=== PATIENT | female | born 1945 | race Caucasian/White ===

== ENCOUNTER 2025-04-11 21:24 | Emergency (ER) | payer MEDICARE, BC ==
[~2025-04-11] VITALS: Ht 160 cm; Wt 46.0 kg
--- NOTE | 2025-04-11 22:09 | Physician Documentation ---
History of Present Illness ~ Chief Complaint: Hip pain Stated Complaint: L HIP PAIN Time Seen by MD: 21:44 Source: patient Mode of Arrival: EMS Exam Limitations: no limitations HPI 79-year-old female woke up with sudden onset sharp left hip pain. Patient states approximately 3 days ago she did fall while getting out of bed at night on her right hip which she states she was able to walk right after and had minimal pain for approximately 24 hours. Patient states that she has had no injury to the left hip woke up and then stood up experiencing this pain that she describes as being kicked by a horse. Patient was unable to stand up and had her neighbor help her up to come to the ER Medication Reconciliation Allergies: Coded Allergies: No Known Allergies (Unverified , 04/11/25) Scheduled Celecoxib (Celecoxib), 1 CAP PO DAILY Diclofenac Sodium (Diclofenac Sodium), 1 APPLIC TOP Q6H Lidocaine (Lidoderm), 1 PATCH TOP DAILY Past Medical History Past Medical History: No Pertinent History Past Surgical History: noncontributory Lives with: Family Lives In: Home Occupation: retired Review of Systems All Other Systems at this time: Reviewed and Negative Musculoskeletal: Reports: see HPI Physical Exam Vital Signs: RN Vital Signs have been reviewed: Yes, Heart Rate: 80, Respirat ory Rate: 16, BP: 157/58, Pulse Oximetry: 98, Weight: 46.000 Physical Exam General: Alert, no apparent distress. HEENT: PERRL, EOMI, no injection, moist mucous membranes. Neck: Full range of motion. Respiratory: Lungs clear, no respiratory distress. Chest: No accessory muscle use. Cardiovascular: Regular rate and rhythm, no murmurs. Extremities: Normal range of motion, no deformity. Neurologic: Oriented x4. Psychiatric: Normal mood and affect. Skin: Normal color, warm and dry. No edema, no ecchymosis. Progress Results/Orders Results/Orders Orders - KAITY DEXTER WELLNESS DIRECTOR Hip Unilateral 2 Views (04/11/25 21:49) Gait Test (04/11/25 ) Completed Orders - KAITY DEXTER WELLNESS DIRECTOR Hip Unilateral 2 Views (04/11/25 21:49) Hydrocodone/Apap 10/325 ([place] 10/325mg (04/11/25 22:10) Medications Received in ER Medications (Trade) Dose Ordered Sig/Candice Route PRN Reason Start Time Stop Time Status Last Admin Dose Admin ([place] 10/325mg tab) 1 tab ONCE ONCE PO 04/11/25 22:10 04/11/25 22:11 DC 04/11/25 22:36 1 TAB Vital Signs 04/11/25 04/11/25 04/11/25 21:27 22:39 23:00 Pulse 80 84 Resp 16 16 16 B/P (MAP) 157/58 138/59 (85) Pulse Ox 98 98 EKG/XRAY/CT/US/VASC/MRI Bone/Soft Tissue X-Ray (Ext.) : Additional Comment CLINICAL INDICATION: Pain TECHNIQUE: 3 views DI HIP UNILATERAL 2 VIEWS Comparison: None FINDINGS: No acute fracture or dislocation. Diffuse osteopenia. Dymvr-kntrpfl-bofh-left hip osteoarthrosis. Degenerative change of the lumbosacral spine. Unremarkable pelvic contents. IMPRESSION: 1. No acute osseous finding of the pelvis or left hip. Medical Decision Making Findings Although patient denies any injury or falls to the left hip an x-ray has been ordered to evaluate for any osseous abnormality pain medication prescribed with the pain being constant but with waves of worsening pain pain medication has been prescribed. X-ray shows no fracture but does show osteopenia/porosis as well as degenerative changes like arthritis. We will prescribe a couple of days of tramadol and gait test prior to discharge. Patient will follow up with primary care for further treatment and evaluation of arthrosis and left hip pain. Patient does have a walker on the used to be her late . She does live alone. She was able to ambulate had a moderate time needing help getting out of bed but was able to ambulate smoothly with a walker. Departure Time of Disposition: 23:41 Disposition: 01 HOME / SELF CARE / HOMELESS Impression: Primary Impression: Arthritis Condition: Stable Discharge Instructions: Arthritis, Nonspecific Additional Instructions: X-ray shows no fractures but does show bone mass such as osteoporosis as well as degenerative changes of that hip which is arthritis. Take pain medication as prescribed get up slowly pain medications can increase the risk of falls. Follow up with primary care for referrals and further treatment and evaluation of hip pain as orthopedics can help care for degenerative changes. Feel free to monitor and for any new or worsening concerns return to the ER Referrals: NO PRIMARY CARE PROVIDER (PCP) Prescriptions Tramadol Hcl (Tramadol Hcl) 50 Mg Tablet 1 TAB PO Q12H PRN PRN for pain for 5 Days, #10 TAB Prov: KAITY DEXTER NP 04/11/25 Diclofenac Sodium (Diclofenac Sodium) 1 % Gel..gram. 1 APPLIC TOP Q6H for 21 Days, #100 GM 0 Refills Prov: KAITY DEXTER NP 04/11/25 Lidocaine (Lidoderm) 5 % Adh..patch 1 PATCH TOP DAILY for 30 Days, #30 PATCH 0 Refills may wear up to 12 hours Prov: KAITY DEXTER NP 04/11/25 Celecoxib (Celecoxib) 400 Mg Capsule 1 CAP PO DAILY for 7 Days, #7 CAP 0 Refills Prov: KAITY DEXTER NP 04/11/25 Education Educated: Patient Educated regarding: diagnosis, treatment, need for follow up Signature Scribe Signature: No scribe Attestation: The note accurately reflects work and decisions made by me.Kaity MARINELLI 04/11/25 22:09 KAITY DEXTER NP Apr 11, 2025 22:09
[2025-04-11] MEDS: HYDROcodone/acetaminophen 10/325mg tab PO ONE (22:36)
--- NOTE | 2025-04-11 22:45 | RADIOLOGY REPORT ---
CLINICAL INDICATION: Pain TECHNIQUE: 3 views DI HIP UNILATERAL 2 VIEWS Comparison: None FINDINGS: No acute fracture or dislocation. Diffuse osteopenia. Jzggq-tntbeas-zksu-left hip osteoarthrosis. Degenerative change of the lumbosacral spine. Unremarkable pelvic contents. IMPRESSION: 1. No acute osseous finding of the pelvis or left hip.
[2025-04-11] MEDS ORDERED: DICL100G59 TOP (22:52)
[2025-04-11] MEDS ORDERED: LIDO-52 TOP (22:52)
[2025-04-11] MEDS ORDERED: CELE400C16 PO (22:52)
[2025-04-11] MEDS ORDERED: TRAM50TA2 PO (23:41)
[2025-04-11] MEDS: ketorolac trometh 30MG/ML vial 30 MG/ML VIAL IM ONE (23:53)
[2025-04-11 23:56] VITALS: BP 132/68; PULSE 88; RESP 16; O2SAT 98
== END 2025-04-12 00:21 | disposition home or self-care (01) ==
LOC: ER 21:25
DX: M16.12 Unilateral primary osteoarthritis, left hip (principal); Z79.899 Other long term (current) drug therapy
CPT/HCPCS: 73502; 96372; 99283; J1885

== ENCOUNTER 2025-04-15 11:02 | Inpatient (IN) | payer MEDICARE, BC ==
[~2025-04-15] VITALS: Ht 167.6 cm; Wt 54.5 kg
[~2025-04-15 11:02] MED LIST: CELE400C16 PO; DICL100G59 TOP; LIDO-52 TOP; TRAM50TA2 PO
--- NOTE | 2025-04-15 11:08 | Physician Documentation ---
History of Present Illness ~ Chief Complaint: Leg Pain Stated Complaint: HIP & LEG PAIN Time Seen by MD: 11:17 [facility] 79-year-old female who presents persisting pain to the right hip and low back. She was seen here previously after a fall, had x-rays that were reportedly nor mal. However, the pain persists, and is made much worse by attempts to ambulate. Tetanus witin 5 years: No Medication Reconciliation Allergies: Coded Allergies: No Known Allergies (Unverified , 04/15/25) Scheduled Diclofenac Sodium (Diclofenac Sodium), 1 APPLIC TOP Q6H Rivastigmine (Rivastigmine), 1 PATCH TOP DAILY, (Reported) Scheduled PRN Tramadol HCl (Tramadol HCl), 1 TAB PO Q12H PRN PRN for pain, (Reported) Miscellaneous Medications Prednisone (Prednisone), (Reported) Discontinued Medications Celecoxib (Celecoxib), 1 CAP PO DAILY Discontinued Reason: Other Lidocaine (Lidoderm), 1 PATCH TOP DAILY Discontinued Reason: Other Tramadol Hcl (Tramadol Hcl), 1 TAB PO Q12H PRN PRN for pain Discontinued Reason: Other Past Medical History Past Medical History: No Pertinent History Past Surgical History: noncontributory Lives with: Family Lives In: Home Occupation: retired Review of Systems ROS As stated above in the HPI, otherwise all systems are reviewed and negative. Physical Exam Physical Exam General: Alert, acutely distressed and attempts to not sit or lie on right side. Neck: Full range of motion. Respiratory: Lungs clear, no respiratory distress. Chest: No accessory muscle use. Cardiovascular: Regular rate and rhythm, no murmurs. Gastrointestinal: Soft, nontender, nondistended. Bowels sounds present. Extremities: TTP right hip ant/post and low back. Neurologic: Oriented x4. Psychiatric: Normal mood and affect. Skin: Normal color, warm and dry. No edema, no ecchymosis. Progress Results/Orders Results/Orders Orders - PHILOMENA HARDEN NP Ct Lumbar Spine (04/15/25 12:04) Ct Lower Extremity (04/15/25 12:05) * Iv Access / Saline Lock * (04/15/25 12:39) Page Hospitalist (04/15/25 ) Completed Orders - PHILOMENA HARDEN NP Ct Lumbar Spine (04/15/25 12:04) Ct Lower Extremity (04/15/25 12:05) Hydrocodone/Apap 5/325mg Tab ([place] 5/32 (04/15/25 11:30) Hydromorphone 0.5 Mg/0.5 Ml/Pf (Dilaudid (04/15/25 12:40) Cbc/Diff (04/15/25 12:56) CMP (04/15/25 12:56) Medications Received in ER Medications (Trade) Dose Ordered Sig/Candice Route PRN Reason Start Time Stop Time Status Last Admin Dose Admin ([place] 5/325mg tablet) 1 tab ONCE ONCE PO 04/15/25 11:30 04/15/25 11:31 DC 04/15/25 12:18 1 TAB (Dilaudid inj.) 0.5 mg ONCE ONCE IV 04/15/25 12:40 04/15/25 12:43 DC 04/15/25 13:10 0.5 MG Vital Signs 04/15/25 04/15/25 04/15/25 04/15/25 11:08 12:18 12:19 13:10 Temp 97.6 Pulse 80 78 Resp 18 17 16 16 B/P (MAP) 155/46 127/80 (96) Pulse Ox 100 99 O2 Flow Rate 0 Laboratory Tests Test 04/15/25 13:08 White Blood Count 13.3 H Red Blood Count 3.49 L Hemoglobin 12.0 Hematocrit 35.5 Mean Corpuscular Volume 101.9 H Mean Corpuscular Hemoglobin 34.5 H Mean Corpuscular Hemoglobin Concent 33.9 Red Cell Distribution Width 13.3 Platelet Count 371 Mean Platelet Volume 7.7 Neutrophils (%) (Auto) 93.3 H Lymphocytes (%) (Auto) 2.6 L Monocytes (%) (Auto) 3.8 Eosinophils (%) (Auto) 0 Basophils (%) (Auto) 0.3 Neutrophils # (Auto) 12.5 H Lymphocytes # (Auto) 0.3 L Monocytes # (Auto) 0.5 Eosinophils # (Auto) 0.0 Basophils # (Auto) 0.0 CBC Comment Sodium Level 139 Potassium Level 3.9 Chloride Level 100 Carbon Dioxide Level 27.3 Anion Gap 12 Blood Urea Nitrogen 23 H Creatinine 0.64 Estimated GFR/1.73 m2 90 BUN/Creatinine Ratio 35.9 H Glucose Level 109 H Calcium Level 9.2 Total Bilirubin 0.7 Aspartate Amino Transf (AST/SGOT) 71 H Alanine Aminotransferase (ALT/SGPT) 49 Alkaline Phosphatase 93 Total Protein 7.5 Albumin 3.4 Globulin 4.1 Albumin/Globulin Ratio 0.8 L Chemistry Comments EKG/XRAY/CT/US/VASC/MRI Bone/Soft Tissue X-Ray (Spine) : Additional Comment [facility] [address], [place], [place] - [address] CAT SCAN Patient: WALTER LI Medical Record: [id number] [facility] : 1945, Age: 79 Sex: Female Location: ER Patient Status: [facility] ER Service Date/Time: 04/15/25/ 1205 Ordering Physician: PHILOMENA HARDEN CORN HUSKER MACHINE OPERATOR Exam: CT LOWER EXTREMITY INDICATION: pain RT HIP PAIN COMPARISON: None TECHNIQUE: CT of the right hip was performed without contrast. Volume transverse images were obtained and reconstructed in multiple planes using bone and soft tissue algorithms. Radiation Dose Information: CT Dose: CTDI volume is 5.83 mGy. Dose-length product is 142.73 mGy*cm FINDINGS: The alignment is normal. View degenerative changes at the hip with complete joint space loss, subchondral sclerosis, subchondral cysts, and osteophytes. There is no fracture, dislocation or aggressive osseous lesion. There is no joint effusion. The soft tissues are normal. IMPRESSION: No acute osseus abnormality. Severe degenerative changes at the right hip. All CT scans at this medical facility are performed using dose modulation techniques as appropriate to a performed exam including the following: Automated exposure control was utilized; Adjustment of the MA And/or KV according to patient size; And use of iterative reconstruction technique. Electronically Signed by:LAITH IVERSON MD Date & Time: 04/15/25 1223 Dictated by: LAITH IVERSON MD Dictation date and time: 04/15/25 1223 Primary Care Provider: NO PRIMARY CARE PROVIDER cc: PHILOMENA HARDEN CORN HUSKER MACHINE OPERATOR ~ Bone/Soft Tissue X-Ray (Ext.) : Additional Comment [address] [address] CAT SCAN Patient: WALTER LI Medical Record: [id number] [facility] : 1945, Age: 79 Sex: Female Location: ER Patient Status: [facility] ER Service Date/Time: 04/15/25/ 1203 Ordering Physician: PHILOMENA HARDEN NP Exam: CT LUMBAR SPINE EXAM: CT CT LUMBAR SPINE HISTORY: pain COMPARISON: None CTDIvol 6.52 mGy, DLP 195.44 mGy*cm. TECHNIQUE: Multiple axial CT images of the spine were obtained using bone alg orithm. Axial and coronal reformatting was done. Bone and soft tissue windows were reviewed. FINDINGS: Bones are diffusely demineralized Comminuted minimally displaced fractures of both the right and left sacral ala that appear acute. Additional minimally displaced fracture of the left L5 transverse process. Moderate convex left lumbar scoliosis with resultant severe degenerative disc disease at L2-L3 on the right. IMPRESSION: Comminuted minimally displaced fractures of both sacral ala. Minimally displaced fracture of the left L5 transverse process. Electronically Signed by:LAITH IVERSON MD Date & Time: 04/15/25 1217 Dictated by: LAITH IVERSON MD Dictation date and time: 04/15/25 1204 Primary Care Provider: NO PRIMARY CARE PROVIDER cc: PHILOMENA HARDEN CORN HUSKER MACHINE OPERATOR ~ Medical Decision Making General Diff Dx:Considerations: Include: Abrasion, Contusion, Fracture, Hematoma, Laceration, Malunion, Neurovascular injury, Open fracture, Sprain, Ulcer Additional Comment 79 year old female presented due to persisting right hip pain, made worse with ambulation. She further noted that she was having difficulty getting in and out of her bed due to the pain and difficulty weight-bearing on the right. She was found to have bilateral sacral ala fractures as well as lumbar fracture at level L5. She will require admission for physical therapy and pain management, and may need a rehabilitation stay as well. Hospitalist paged to evaluate her for admission. Departure Time of Disposition: 15:11 Disposition: 09 ADMITTED INPATIENT Admitted to Inpatient Unit: yes, to hospitalist Impression: Primary Impression: sacral ala fracture Referrals: NO PRIMARY CARE PROVIDER (PCP) Signature Scribe Signature: x Attestation: The note accurately reflects work and decisions made by me.Philomena Randhawa NP 04/15/25 13:00 PHILOMENA HARDEN NP Apr 15, 2025 11:08
[2025-04-15] MEDS: HYDROcodone/acetaminophen 5mg/325mg tablet PO ONE (12:18)
--- NOTE | 2025-04-15 12:20 | RADIOLOGY REPORT ---
EXAM: CT CT LUMBAR SPINE HISTORY: pain COMPARISON: None CTDIvol 6.52 mGy, DLP 195.44 mGy*cm. TECHNIQUE: Multiple axial CT images of the spine were obtained using bone algorithm. Axial and coronal reformatting was done. Bone and soft tissue windows were reviewed. FINDINGS: Bones are diffusely demineralized Comminuted minimally displaced fractures of both the right and left sacral ala that appear acute. Additional minimally displaced fracture of the left L5 transverse process. Moderate convex left lumbar scoliosis with resultant severe degenerative disc disease at L2-L3 on the right. IMPRESSION: Comminuted minimally displaced fractures of both sacral ala. Minimally displaced fracture of the left L5 transverse process.
--- NOTE | 2025-04-15 12:26 | RADIOLOGY REPORT ---
INDICATION: pain RT HIP PAIN COMPARISON: None TECHNIQUE: CT of the right hip was performed without contrast. Volume transverse images were obtained and reconstructed in multiple planes using bone and soft tissue algorithms. Radiation Dose Information: CT Dose: CTDI volume is 5.83 mGy. Dose-length product is 142.73 mGy*cm FINDINGS: The alignment is normal. View degenerative changes at the hip with complete joint space loss, subchondral sclerosis, subchondral cysts, and osteophytes. There is no fracture, dislocation or aggressive osseous lesion. There is no joint effusion. The soft tissues are normal. IMPRESSION: No acute osseus abnormality. Severe degenerative changes at the right hip. All CT scans at this medical facility are performed using dose modulation techniques as appropriate to a performed exam including the following: Automated exposure control was utilized; Adjustment of the MA And/or KV according to patient size; And use of iterative reconstruction technique.
--- NOTE | 2025-04-15 13:09 | HISTORY AND PHYSICAL ---
History & Physical Providers to Complaint, low-back pain, right thigh pain ~ History of Present Illness Reason for Admit\Complaint: As above History of Present Illness This is a 79-year-old female, relatively in good health except history of hypertension, history of chronic pain syndrome on home NSAIDs, presented today to emergency department chief complaint right thigh pain, mechanical fall, ground level, associated with back pain, and Gait disorder 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 who presents persisting pain to the right hip and low back. She was seen here previously after a fall, had x-rays that were reportedly normal. However, the pain persists, and is made much worse by attempts to ambulate. In emergency department patient was evaluated by medical provider, was diagnosed with L5 transverse process fracture and sacral bilateral alar fracture, and decision was made to admit patient for further evaluation and treatment, no additional complaint or concern. CT of the head neck thoracic spine a right femur pending. Allergies: Coded Allergies: No Known Allergies (Unverified , 04/15/25) Active prescriptions I reviewed reconciled Home Medications Home Medications Active Tramadol Hcl (Tramadol HCl) 50 Mg Tablet 1 Tab PO Q12H PRN PRN 5 Days Diclofenac Sodium 1 % Gel..gram. 1 Applic TOP Q6H 21 Days Lidoderm (Lidocaine) 5 % Adh..patch 1 Patch TOP DAILY 30 Days may wear up to 12 hours Celecoxib 400 Mg Capsule 1 Cap PO DAILY 7 Days Past Medical History Past Medical History As in HPI Past Surgical History Surgical History Comment As in HPI Past Social History Social History Comment Deny illicit drug abuse tobacco alcohol use live with the family, good social support Health Maintenance Health Maintenance Noncontributory ROS ROS I review of systems Exam Vitals: Vital Signs Date Time Temp Pulse Resp B/P (MAP) Pulse Ox O2 Delivery O2 Flow Rate FiO2 04/15/25 12:19 78 16 127/80 (96) 99 0 04/15/25 11:08 97.6 Vital signs, stable ,afebrile. Pulse Oximetry reflects adequate oxygenation. BMI is 19, weight 54 kg General: well developed, well nourished. Awake , alert, and oriented x4, resting comfortably in the bed, in no acute distress . Skin: Warm, dry, no pallor, no rash or petechiae. HEENT: Atraumatic, normocephalic, EOMI, anicteric sclera B; pink conjunctiva; PERRLA, normal oropharynx, moist oral and nasal mucosa. Tympanic membrane , nose , throat clear. Neck: Trachea midline. Supple, full range of motion, no JVD, bruit , hepatojugular reflex , lymphadenopathy or masses, or other lesions Cardiac: Regular rhythm, regular rate no murmurs, rubs, or gallops. Normal S1 and S2, no S3 noticed. PMI is normal. Respiratory: Equal breath sounds bilaterally, no tachypnea; lungs clear to auscultation bilaterally, no wheezing ,rub or rales, or crackles. Chest wall is symmetric and without deformity. No signs of trauma. Chest wall is nontender. No signs of respiratory distress. Resonance is normal upon percussion bilaterally. Gastrointestinal: Abdomen symmetric, non-distended, soft, non-tender, normal bowel sounds x4 quadrant, normoactive, no hepatosplenomegaly , no masses , no bruit, no flank pain bilaterally. No voluntary guarding, rebound, or rigidity. No tenderness to percussion. No pulsatile masses. Equal femoral pulses. No Horvath's sign or McBurney point tenderness. Back; no CVA tenderness bilaterally, no deformities. Neck and back are without deformity as well. No tenderness noted on palpation of the spinous processes. Spinous processes are midline. Cervical, thoracic, and lumbar paraspinal muscles are not tender and are without spasm. Locally, lower horseback excavator to pa lpation over L5, associated paraspinal pain, : Not indicated Musculoskeletal: Extremities, normal range of motion, non-tender, muscle strength 5/5 x 4. Negative Homans signs bilaterally on lower extremity. Distal pulses full symmetrical, no clubbing, cyanosis , edema. Locally, a right thigh tender to palpation midline 1/3 neurovascular grossly intact, Neurological: Speech is clear, alert, and oriented x 4. No motor or sensory deficit, deep tendon reflexes normal, cerebellar intact. Cranial nerves II-XII intact. Psych: Alert and or appropriate, normal affect. Vascular: Good distal pulses, which are equal x4; capillary refill less than 2 seconds. Lymphatic, no lymphadenopathy. 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 IV analgesics PT evaluation and treatment Additional lab work pending Nutrition consult CT of the head and neck and thoracic spine pending Chest x-ray pending I reconciled home medications DVT gastropathy prophylaxis addressed Sepsis Screening Reassessment Date: Apr 15, 2025 Date of Service: Apr 15, 2025 Billing Provider: ABRAN GALLAGHER MD Common Visit Codes: 40306-AFRBMNE INP/OBS CARE (HIGH) Secondary Visit Codes: 16781-[id number] CARE PLAN 30 MINUTES ABRAN GALLAGHER MD Apr 15, 2025 13:09
[2025-04-15] MEDS: HYDROmorphone inj. 0.5 MG/0.5 ML DISP.SYRIN IV ONE (13:10)
[2025-04-15 13:27] LABS: MEAN PLATELET VOLUME 7.7 FL (7.4-10.4); RED CELL DISTRIBUTION WIDTH 13.3 % (11.5-14.5)
[2025-04-15] MEDS ORDERED: RIVA1PAT12 TOP (13:28)
[2025-04-15] MEDS ORDERED: TRAM50TA2 PO (13:30)
[2025-04-15] MEDS ORDERED: PRED10TA (13:32)
[2025-04-15 13:40] LABS: CREATININE 0.64 MG/DL (0.40-0.90); TOTAL CARBON DIOXIDE 27.3 MMOL/L (24-32); eCRCL 62 ML/MIN; eGFR 90 ML/MIN
[2025-04-15] MEDS ORDERED: magnesium Cl slow-release 64mg tablet PO PRN (15:00)
[2025-04-15] MEDS ORDERED: bisacodyl 10mg suppository rectal RC PRN (15:00)
[2025-04-15] MEDS ORDERED: ondansetron/PF 4mg/2ml inj IV PRN (15:00)
[2025-04-15] MEDS ORDERED: HYDROcodone/acetaminophen 5mg/325mg tablet PO PRN (15:00)
[2025-04-15] MEDS ORDERED: magnesium sulf-water 2g/50mL 50 ML IV PRN (15:00)
[2025-04-15] MEDS ORDERED: potassium Cl 20 mEq SR tablet PO PRN ×2 (15:00)
[2025-04-15] MEDS ORDERED: acetaminophen 650mg rectal suppository RC PRN (15:00)
[2025-04-15] MEDS ORDERED: ondansetron 4mg rapidly disintigrating tab PO PRN (15:00)
[2025-04-15] MEDS ORDERED: magnesium sulf-water 4G/100mL 100 ML IV PRN (15:00)
[2025-04-15] MEDS ORDERED: magnesium hydroxide 30ml (MOM) UD suspension PO PRN (15:00)
[2025-04-15] MEDS ORDERED: potassium Cl 40MEQ/1/2NS 520ml 520 ML IV PRN (15:00)
[2025-04-15] MEDS ORDERED: mag hydrox/Alum hydrox/simeth 30ml oral suspension PO PRN (15:00)
[2025-04-15 15:45] VITALS: BP 158/63; PULSE 70; RESP 16; TEMP 96.9; O2SAT 98
--- NOTE | 2025-04-15 15:50 | RADIOLOGY REPORT ---
EXAM: CT CT HEAD HISTORY: Altered level of consciousness after the fall COMPARISON: None TECHNIQUE: Noncontrast axial CT images of the head were performed. Sagittal and coronal reformatted images were obtained. This CT exam was performed using 1 or more of the following dose reduction techniques: Automated exposure control, adjustment of the mA and/or kv according to patient size, or the use of iterative reconstruction techniques. Radiation Dose: CTDI volume is 47.08 mGy. Dose-length product is 791.35 mGy*cm FINDINGS: No intracranial hemorrhage, mass, midline shift, hydrocephalus, or evidence of acute large vessel infarct. There is mild global brain atrophy. There is chunky calcification about the caudal aspect of the left maxillary sinus. The other paranasal sinuses are clear. There are postoperative changes of bilateral cataract extraction surgery. The bilateral mastoid air cells and middle ear spaces are clear. No cranial fracture or scalp edema. IMPRESSION: 1. No acute intracranial process. 2. Outlook calcification along the inferior margin of the left maxillary sinus is nonspecific, and may be due to old trauma, chronic sinusitis, or iatrogenic etiology.
--- NOTE | 2025-04-15 15:51 | RADIOLOGY REPORT ---
EXAM: CT CT CERVICAL SPINE HISTORY: Altered level of consciousness after the fall COMPARISON: None CTDIvol 10.39 mGy, DLP 242.44 mGy*cm. TECHNIQUE: Multiple axial CT images of the spine were obtained using bone algorithm. Axial and coronal reformatting was done. Bone and soft tissue windows were reviewed. FINDINGS: No evidence of definite acute fracture, spinal dislocation, or significant appearing acute subluxation is seen. Most of normal cervical lordosis secondary to moderate to severe degenerative disc disease throughout the mid and lower cervical spine. IMPRESSION: No definite CT evidence of acute fracture or dislocation of the bony cervical spine.
--- NOTE | 2025-04-15 15:54 | RADIOLOGY REPORT ---
EXAM: CT CT THORACIC SPINE INDICATION: Altered level of consciousness after the fall COMPARISON: CT CT CERVICAL SPINE on DOS: 04/15/25, DI CHEST,SINGLE VIEW on DOS: 04/15/25, CT CT LUMBAR SPINE on DOS: 04/15/25 TECHNIQUE: Multiple axial CT images of the thoracic spine were obtained using bone algorithm. Axial and coronal reformatting was done. Bone and soft tissue windows were reviewed. Radiation Dose Information: CT Dose: CTDI volume is 6.97 mGy. Dose-length product is 252.56 mGy*cm FINDINGS: No CT evidence of acute fracture or traumatic mal-alignment. The visualized paraspinal soft tissues are grossly unremarkable. Mild convex right curvature of the thoracic spine which could be positional. There is mild multilevel degenerative change of the spine with disc space narrowing and marginal osteophyte formation. IMPRESSION: No CT evidence of acute fracture or traumatic malalignment of the bony thoracic spine. Radiation optimization: All CT scans at this facility use at least one of these dose optimization techniques: automated exposure control mA and/or kV adjustment per patient size (includes targeted exams where dose is matched to clinical indication) or iterative reconstruction.
--- NOTE | 2025-04-15 15:56 | RADIOLOGY REPORT ---
INDICATION: Right thigh pain, mechanical fall COMPARISON: CT CT LOWER EXTREMITY on DOS: 04/15/25, CT CT LUMBAR SPINE on DOS: 04/15/25, DI HIP UNILATERAL 2 VIEWS on DOS: 04/11/25 TECHNIQUE: CT of the right lower extremity was performed without contrast. Volume transverse images were obtained and reconstructed in multiple planes using bone and soft tissue algorithms. Radiation Dose Information: CT Dose: CTDI volume is 16.67 mGy. Dose-length product is 889.56 mGy*cm FINDINGS: The alignment is normal. Severe degenerative changes at the right hip with complete joint space loss and osteophytes. There is no fracture, dislocation or aggressive osseous lesion. There is no joint effusion. The soft tissues are normal. IMPRESSION: No acute abnormality. All CT scans at this medical facility are performed using dose modulation techniques as appropriate to a performed exam including the following: Automated exposure control was utilized; Adjustment of the MA And/or KV according to patient size; And use of iterative reconstruction technique.
[2025-04-15 16:17] VITALS: RESP 16; O2SAT 98
[2025-04-15 17:03] LABS: APTT 23 SECONDS (22-32); INR 1.0 INR
[2025-04-15 17:18] LABS: PHOSPHORUS 2.8 MG/DL (2.3-4.5); PRO BRAIN NATRIURETIC PEPTIDE 1395 PG/ML (0-450)
[2025-04-15] MEDS: HYDROcodone/acetaminophen 10/325mg tab PO PRN (17:20)
[2025-04-15 17:27] LABS: ETHANOL < 10 MG/DL (<10)
[2025-04-15 18:00] VITALS: BP 140/48; PULSE 82; RESP 16; TEMP 98.3; O2SAT 100
[2025-04-15 19:05] LABS: LEUKOCYTE ESTERASE ,URINE NEGATIVE (Neg); NITRITES, URINE NEGATIVE (Neg); OCCULT BLOOD,URINE TRACE-INTACT (Neg)
[2025-04-15 19:35] LABS: URINE AMPHETAMINE SCREEN NEGATIVE (Neg); URINE BARBITUATE SCREEN NEGATIVE (Neg); URINE BENZODIAZEPINES SCREEN NEGATIVE (Neg); URINE CANNABINOID SCREEN NEGATIVE (Neg); URINE COCAINE SCREEN NEGATIVE (Neg); URINE METHADONE SCREEN NEGATIVE (Neg); URINE OPIATE SCREEN POSITIVE (Neg); URINE PHENCYCLIDINE SCREEN NEGATIVE (Neg)
[2025-04-15 19:36] LABS: UA COLLECTION TYPE NON-SPECIFIED
[2025-04-15 19:37] LABS: MUCUS STRANDS NONE SEEN /LPF (Neg); SQUAMOUS EPITHELIAL CELL,UR FEW /LPF (FEW)
[2025-04-15] MEDS: FLU VACC TS2025-26(6MOS UP)/PF (FLULAVAL) 45 MCG/0.5 ML SYRINGE IMVAC ONE (19:37)
[2025-04-15 19:38] LABS: AMORPHOUS URATES 1+
[2025-04-15] MEDS: docusate sod 100mg capsule PO SCH (20:07)
[2025-04-15] MEDS: K and/or MAG REPLACEMENT MC SCH (20:07)
[2025-04-15] MEDS: morphine 4 MG/ML inj SYRINge IV PRN (20:08)
[2025-04-15 22:00] VITALS: BP 119/53; PULSE 81; RESP 14; TEMP 97.6; O2SAT 98
[2025-04-16 06:00] VITALS: BP 146/52; PULSE 73; RESP 13; TEMP 97.2; O2SAT 99
[2025-04-16 08:00] VITALS: RESP 13; O2SAT 99
[2025-04-16] MEDS: pantoprazole 40mg Tablet.DR PO SCH (08:10)
[2025-04-16 10:00] VITALS: BP 135/71; PULSE 79; RESP 16; TEMP 98.3; O2SAT 97
[2025-04-16 18:00] VITALS: BP 166/70; PULSE 77; RESP 16; TEMP 98.1; O2SAT 98
--- NOTE | 2025-04-16 19:18 | PROGRESS NOTE ---
Daily Progress Note Providers to CC Feels better today pain well controlled resting comfortably in the bed ~ Central Line/PICC still needed: No Murrell-Non Protocol Murrell Indications Met/Not Met: F/C Indications Not Met Antibiotic Timeout Antibiotic Ordered?: No MRSA Education MRSA Education Provided to pt: No Subjective As above Objective Vital Signs Date Time Temp Pulse Resp B/P (MAP) Pulse Ox O2 Delivery O2 Flow Rate FiO2 04/16/25 13:06 16 04/16/25 10:00 98.3 79 135/71 (92) 97 Room Air 04/15/25 14:30 0 Vital signs, stable ,afebrile. Pulse Oximetry reflects adequate oxygenation. General: well developed, well nourished. Awake , alert, and oriented x4, resting comfortably in the bed, in no acute distress . Skin: Warm, dry, no pallor, no rash or petechiae. HEENT: Atraumatic, normocephalic, EOMI, anicteric sclera B; pink conjunctiva; PERRLA, normal oropharynx, moist oral and nasal mucosa. Tympanic membrane , nose , throat clear. Neck: Trachea midline. Supple, full range of motion, no JVD, bruit , hepatojugular reflex , lymphadenopathy or masses, or other lesions Cardiac: Regular rhythm, regular rate no murmurs, rubs, or gallops. Normal S1 and S2, no S3 noticed. PMI is normal. Respiratory: Equal breath sounds bilaterally, no tachypnea; lungs clear to auscultation bilaterally, no wheezing ,rub or rales, or crackles. Chest wall is symmetric and without deformity. No signs of trauma. Chest wall is nontender. No signs of respiratory distress. Resonance is normal upon percussion bilaterally. Gastrointestinal: Abdomen symmetric, non-distended, soft, non-tender, normal bowel sounds x4 quadrant, normoactive, no hepatosplenomegaly , no masses , no bruit, no flank pain bilaterally. No voluntary guarding, rebound, or rigidity. No tenderness to percussion. No pulsatile masses. Equal femoral pulses. No Horvath's sign or McBurney point tenderness. Back; no CVA tenderness bilaterally, no deformities. Neck and back are without deformity as well. No tenderness noted on palpation of the spinous processes. Spinous processes are midline. Cervical, thoracic, and lumbar paraspinal muscles are not tender and are without spasm. Musculoskeletal: Extremities, normal range of motion, non-tender, muscle strength 5/5 x 4. Negative Homans signs bilaterally on lower extremity. Distal pulses full symmetrical, no clubbing, cyanosis , edema. Neurological: Speech is clear, alert, and oriented x 4. No motor or sensory deficit, deep tendon reflexes normal, cerebellar intact. Cranial nerves II-XII intact. Psych: Alert and or appropriate, normal affect. Vascular: Good distal pulses, which are equal x4; capillary refill less than 2 seconds. Lymphatic, no lymphadenopathy. 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 IV analgesics PT evaluation and treatment Additional lab work pending Nutrition consult CT of the head and neck and thoracic spine completed Chest x-ray completed Echocardiography pending I reconciled home medications DVT gastropathy prophylaxis addressed Sepsis Screening Reassessment Date: Apr 16, 2025 Date of Service: Apr 16, 2025 Billing Provider: ABRAN GALLAGHER MD Common Visit Codes: [id number] INP/OBS CARE(HIGH) ABRAN GALLAGHER MD Apr 16, 2025 19:18
[2025-04-16] MEDS: sodium bicarbonate (8.4%) inj. 50 MEQ in dextrose 5%-water 1,000 ML IV SCH (21:14)
[2025-04-16 22:00] VITALS: BP 164/69; PULSE 81; RESP 18; TEMP 97.9; O2SAT 100
[2025-04-16] MEDS: morphine 4 MG/ML inj SYRINge IV PRN (22:12)
[2025-04-17 06:00] VITALS: BP 141/54; PULSE 77; RESP 17; TEMP 97.7; O2SAT 99
[2025-04-17 06:48] LABS: MEAN PLATELET VOLUME 7.8 FL (7.4-10.4); RED CELL DISTRIBUTION WIDTH 12.8 % (11.5-14.5)
[2025-04-17 07:03] LABS: CREATININE 0.66 MG/DL (0.40-0.90); TOTAL CARBON DIOXIDE 29.5 MMOL/L (24-32); eCRCL 61 ML/MIN; eGFR 87 ML/MIN
[2025-04-17 08:00] VITALS: RESP 14; O2SAT 99
[2025-04-17 10:00] VITALS: BP 141/65; PULSE 79; RESP 17; TEMP 97.8; O2SAT 100
[2025-04-17 18:00] VITALS: BP 173/59; PULSE 69; RESP 15; TEMP 98.1; O2SAT 98
--- NOTE | 2025-04-17 18:18 | PROGRESS NOTE ---
Daily Progress Note Providers to CC ~ no new complaint today resting comfortably in the bed Central Line/PICC still needed: No Murrell-Non Protocol Murrell Indications Met/Not Met: F/C Indications Not Met Antibiotic Timeout Antibiotic Ordered?: No MRSA Education MRSA Education Provided to pt: No Subjective As above Objective Vital Signs Date Time Temp Pulse Resp B/P (MAP) Pulse Ox O2 Delivery O2 Flow Rate FiO2 04/17/25 16:10 14 04/17/25 10:00 97.8 79 141/65 (90) 100 Room Air 04/17/25 08:00 0.0 Vital signs, stable ,afebrile. Pulse Oximetry reflects adequate oxygenation. General: well developed, well nourished. Awake , alert, and oriented x4, resting comfortably in the bed, in no acute distress . Skin: Warm, dry, no pallor, no rash or petechiae. HEENT: Atraumatic, normocephalic, EOMI, anicteric sclera B; pink conjunctiva; PERRLA, normal oropharynx, moist oral and nasal mucosa. Tympanic membrane , nose , throat clear. Neck: Trachea midline. Supple, full range of motion, no JVD, bruit , hepatojugular reflex , lymphadenopathy or masses, or other lesions Cardiac: Regular rhythm, regular rate no murmurs, rubs, or gallops. Normal S1 and S2, no S3 noticed. PMI is normal. Respiratory: Equal breath sounds bilaterally, no tachypnea; lungs clear to auscultation bilaterally, no wheezing ,rub or rales, or crackles. Chest wall is symmetric and without deformity. No signs of trauma. Chest wall is nontender. No signs of respiratory distress. Resonance is normal upon percussion bilaterally. Gastrointestinal: Abdomen symmetric, non-distended, soft, non-tender, normal bowel sounds x4 quadrant, normoactive, no hepatosplenomegaly , no masses , no bruit, no flank pain bilaterally. No voluntary guarding, rebound, or rigidity. No tenderness to percussion. No pulsatile masses. Equal femoral pulses. No Horvath's sign or McBurney point tenderness. Back; no CVA tenderness bilaterally, no deformities. Neck and back are without deformity as well. No tenderness noted on palpation of the spinous processes. Spinous processes are midline. Cervical, thoracic, and lumbar paraspinal muscles are not tender and are without spasm. Musculoskeletal: Extremities, normal range of motion, non-tender, muscle strength 5/5 x 4. Negative Homans signs bilaterally on lower extremity. Distal pulses full symmetrical, no clubbing, cyanosis , edema. Neurological: Speech is clear, alert, and oriented x 4. No motor or sensory deficit, deep tendon reflexes normal, cerebellar intact. Cranial nerves II-XII intact. Psych: Alert and or appropriate, normal affect. Vascular: Good distal pulses, which are equal x4; capillary refill less than 2 seconds. Lymphatic, no lymphadenopathy. 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 IV analgesics PT evaluation and treatment Additional lab work pending Nutrition consult CT of the head and neck and thoracic spine completed Chest x-ray completed Echocardiography pending I reconciled home medications DVT gastropathy prophylaxis addressed Sepsis Screening Reassessment Date: Apr 17, 2025 Date of Service: Apr 17, 2025 Billing Provider: ABRAN GALLAGHER MD Common Visit Codes: [id number] INP/OBS CARE(HIGH) ABRAN GALLAGHER MD Apr 17, 2025 18:18
[2025-04-17] MEDS: lactose-reduced food (Ensure Enlive) - 237ml bottle PO SCH (18:36)
[2025-04-17 19:27] LABS: PRO BRAIN NATRIURETIC PEPTIDE 2824 PG/ML (0-450)
[2025-04-17] MEDS ORDERED: RIVASTIGMINE TD SCH (19:35)
[2025-04-17] MEDS ORDERED: RIVASTIGMINE TOP SCH (19:44)
[2025-04-17] MEDS: RIVASTIGMINE TOP SCH (20:49)
[2025-04-17 22:00] VITALS: BP 124/100; PULSE 75; RESP 15; TEMP 97.8; O2SAT 98
--- NOTE | 2025-04-18 05:23 | CARDIOLOGY REPORT ---
APPROVED REPORT EXAM: Comprehensive 2D, Doppler, and color-flow Echocardiogram. 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 141.7 cm/s AoV VTI 27.2 cm AO Peak GR. 8.0 mmHg AO Mean GR. 4 mmHg LVOT VTI 28.71 cm LVOT Peak Sky. 129.0 cm/s FANNY(VTI)/BSA 2.51 cm2/m2 FANNY (VTI) 2.51 cm2 AV DI 1.06 % Mitral Valve MV E Velocity 85.9 cm/s MV Peak Gr. 3 mmHg MV DECEL TIME 180 ms MV A Velocity 68.3 cm/s MV PHT 52 ms E/A Ratio 1.3 MVA (PHT) 4.23 cm2 MV VMax 80.8 cm/s TDI Medial E' P. V 10.03 cm/s E/Medial E' 8.6 Tricuspid Valve TR P. Velocity 211 cm/s RAP ESTIMATE 10 mmHg TR Peak Gr. 18 mmHg RVSP 28 mmHg Pulmonary Vein S1 Velocity 58.4 cm/s D2 Velocity 39.3 cm/s PVa Velocity 24.5 cm/s PVa Duration 84 msec LEFT VENTRICLE LV is small in size with normal wall thickness. Overall systolic function appears normal. LVEF is 65%. RIGHT VENTRICLE RV appears normal in size and contractility. ATRIA The left atrium size is normal. AORTIC VALVE Trileaflet AV appears sclerotic without stenosis. No insufficiency. MITRAL VALVE MV is thickened with mild annular thickening and no stenosis. Trace mitral regurgitation. TRICUSPID VALVE The tricuspid valve is normal in structure. Trace tricuspid regurgitation. PULMONIC VALVE The pulmonary valve is normal in structure. Trace pulmonic insufficiency. GREAT VESSELS The aortic root is normal in size. The IVC is normal in size and collapses >50% with inspiration. PERICARDIUM There is no pericardial effusion. Other Information Study Quality: Adequate but difficult parasternals Conclusion LV is small in size with normal wall thickness. Overall systolic function appears normal. LVEF is 65%. RV appears normal in size and contractility. The left atrium size is normal. Trileaflet AV appears sclerotic without stenosis. No insufficiency. MV is thickened with mild annular thickening and no stenosis. Trace mitral regurgitation. The tricuspid valve is normal in structure. Trace tricuspid regurgitation. The pulmonary valve is normal in structure. Trace pulmonic insufficiency. There is no pericardial effusion.
[2025-04-18 06:00] VITALS: BP 130/65; PULSE 65; RESP 14; TEMP 97.2; O2SAT 98
[2025-04-18 07:20] LABS: MEAN PLATELET VOLUME 7.4 FL (7.4-10.4); RED CELL DISTRIBUTION WIDTH 13.0 % (11.5-14.5)
[2025-04-18 08:00] VITALS: RESP 12; O2SAT 99
[2025-04-18] MEDS ORDERED: RIVASTIGMINE TOP SCH (08:00)
[2025-04-18 08:07] LABS: CREATININE 0.59 MG/DL (0.40-0.90); TOTAL CARBON DIOXIDE 31.4 MMOL/L (24-32); eCRCL 68 ML/MIN; eGFR > 90 ML/MIN
[2025-04-18 10:00] VITALS: BP 111/57; PULSE 70; RESP 15; TEMP 97.7; O2SAT 99
[2025-04-18 15:19] VITALS: BP 117/64; PULSE 85; RESP 15; TEMP 98.1; O2SAT 94
--- NOTE | 2025-04-18 18:15 | DISCHARGE SUMMARY ---
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 Chronic pain syndrome on home NSAIDs in exacerbation Malnutrition BMI 19 Hypertension poor control Diastolic CHF in exacerbation Rhabdomyolysis Admission Diagnosis: L5 fx; sacral fx Admission Diagnosis Comment: Mechanical fall ground level A right hip pain associated right thigh pain secondary to fall L Five transverse process fracture Bilateral sacral alar fracture Gait disorder, 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 Chronic pain syndrome on home NSAIDs in exacerbation Malnutrition BMI 19 Hypertension poor control Diastolic CHF in exacerbation Rhabdomyolysis Hospital Course DATE OF ADMISSION: April 15, 2025 DATE OF DISCHARGE: April 18, 2025 Discharge Diagnosis\Comment: Mechanical fall ground level A right hip pain associated right thigh pain secondary to fall L Five transverse process fracture Bilateral sacral alar fracture Gait disorder, 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 Chronic pain syndrome on home NSAIDs in exacerbation Malnutrition BMI 19 Hypertension poor control Diastolic CHF in exacerbation Rhabdomyolysis Operations\Procedures: Non Consultants: Non Complications: Non Condition on DC: Stable Discharge Summary: This is a 79-year-old female, relatively in good health except history of hypertension, history of chronic pain syndrome on home NSAIDs, presented today to emergency department chief complaint right thigh pain, mechanical fall, ground level, associated with back pain, and Gait disorder unable to ambulate i ndependently who presents persisting pain to the right hip and low back. She was seen here previously after a fall, had x-rays that were reportedly normal. However, the pain persists, and is made much worse by attempts to ambulate. In emergency department patient was evaluated by medical provider, was diagnosed with L5 transverse process fracture and sacral bilateral alar fracture, and decision was made to admit patient for further evaluation and treatment, no additional complaint or concern. CT of the head neck thoracic spine a right femur pending. After admission patient was extensively evaluated treated he will condition improved ready to be discharged to rehab facility, today on physical exam Vital signs, stable ,afebrile. Pulse Oximetry reflects adequate oxygenation. General: well developed, well nourished. Awake , alert, and oriented x4, resting comfortably in the bed, in no acute distress . Skin: Warm, dry, no pallor, no rash or petechiae. HEENT: Atraumatic, normocephalic, EOMI, anicteric sclera B; pink conjunctiva; PERRLA, normal oropharynx, moist oral and nasal mucosa. Tympanic membrane , nose , throat clear. Neck: Trachea midline. Supple, full range of motion, no JVD, bruit , hepatojugular reflex , lymphadenopathy or masses, or other lesions Cardiac: Regular rhythm, regular rate no murmurs, rubs, or gallops. Normal S1 and S2, no S3 noticed. PMI is normal. Respiratory: Equal breath sounds bilaterally, no tachypnea; lungs clear to auscultation bilaterally, no wheezing ,rub or rales, or crackles. Chest wall is symmetric and without deformity. No signs of trauma. Chest wall is nontender. No signs of respiratory distress. Resonance is normal upon percussion bilaterally. Gastrointestinal: Abdomen symmetric, non-distended, soft, non-tender, normal bowel sounds x4 quadrant, normoactive, no hepatosplenomegaly , no masses , no bruit, no flank pain bilaterally. No voluntary guarding, rebound, or rigidity. No tenderness to percussion. No pulsatile masses. Equal femoral pulses. No Horvath's sign or McBurney point tenderness. Back; no CVA tenderness bilaterally, no deformities. Neck and back are without deformity as well. No tenderness noted on palpation of the spinous processes. Spinous processes are midline. Cervical, thoracic, and lumbar paraspinal muscles are not tender and are without spasm. Musculoskeletal: Extremities, normal range of motion, non-tender, muscle strength 5/5 x 4. Negative Homans signs bilaterally on lower extremity. Distal pulses full symmetrical, no clubbing, cyanosis , edema. Neurological: Speech is clear, alert, and oriented x 4. No motor or sensory deficit, deep tendon reflexes normal, cerebellar intact. Cranial nerves II-XII intact. Psych: Alert and or appropriate, normal affect. Vascular: Good distal pulses, which are equal x4; capillary refill less than 2 seconds. Lymphatic, no lymphadenopathy. *Problems/Diagnosis: (1) Rhabdomyolysis Status: Acute Total Time Spent on D/C: > 30 Minutes Date of Service: Apr 18, 2025 Billing Provider: ABRAN GALLAGHER MD Common Visit Codes: 10004-YOI/OBS DISCH DAY >30min ABRAN GALLAGHER MD Apr 18, 2025 18:15
== END 2025-04-18 15:40 | DRG 963 ==
LOC: ER 11:04 → UNDOADMIN 13:26 → ED HOLD 13:26 → ORTHO 4S 15:35 → ED HOLD 15:35
PROVIDERS: ADMIT Family Medicine; ATTEND Family Medicine
DX: S32.19XA Other fracture of sacrum, initial encounter for closed fracture (principal); I50.33 Acute on chronic diastolic (congestive) heart failure; T79.6XXA Traumatic ischemia of muscle, initial encounter; S32.058A Other fracture of fifth lumbar vertebra, initial encounter for closed fracture; Z68.1 Body mass index [BMI] 19.9 or less, adult; E44.0 Moderate protein-calorie malnutrition; G89.4 Chronic pain syndrome; I11.0 Hypertensive heart disease with heart failure; W18.39XA Other fall on same level, initial encounter; Z79.899 Other long term (current) drug therapy; F03.90 Unspecified dementia, unspecified severity, without behavioral disturbance, psychotic disturbance, mood disturbance, and anxiety; Y93.89 Activity, other specified; Y92.89 Other specified places as the place of occurrence of the external cause; Y99.8 Other external cause status
CPT/HCPCS: 36415; 70450; 72125; 72128; 72131; 73700; 80053; 80305; 80320; 81001; 82550; 83036; 83605; 83690; 83735; 83880; 84100; 84443; 84484; 85025; 85379; 85610; 85730; 87040; 87081; 93306; 96374; 96375; 97161; 97530; 99285; G0378; J1171; J2270; J3490; J7070